=== PATIENT | female | born 1940 | race Caucasian/White ===

== ENCOUNTER 2017-09-13 05:46 | Emergency (ER) | payer MEDICARE ==
[~2017-09-13] VITALS: Ht 167.6 cm; Wt 80.1 kg
[2017-09-13 05:52] VITALS: BP 126/60; PULSE 60; TEMP 97.3
[2017-09-13 05:59] VITALS: PULSE 70; RESP 18; O2SAT 99
[2017-09-13] MEDS ORDERED: LUMI0.01 EACH EYE (06:09)
[2017-09-13] MEDS ORDERED: ROSU10 PO (06:09)
[2017-09-13] MEDS ORDERED: COLE625 PO (06:09)
[2017-09-13] MEDS ORDERED: AMLO10 PO (06:09)
[2017-09-13] MEDS ORDERED: CALC12502 PO (06:10)
[2017-09-13] MEDS ORDERED: ASPI-516 CHEW (06:10)
--- NOTE | 2017-09-13 06:13 | PD ---
HPI Chief Complaint: GI Complaint Time Seen by Provider: 05:53 Travel History International Travel<30 days: No Contact w/Intl Traveler<30days: No Traveled to known affect area: No History of Present Illness HPI The patient is a 77-year-old female that complains of a cough, nausea, vomiting since last night. She denies any fever. She did have a fever earlier this month along with a sore throat. The sore throat is resolved. She denies any abdominal pain. She has never had any surgery and still has her gallbladder and appendix. She is from [facility] and is here for the winter , she does not have a local primary care physician. She denies any blood in the vomitus or stool. 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)) Immunizations Current: Yes Tetanus Vaccination: < 5 Years Influenza Vaccination: Yes Past Surgical History Gynecologic Surgery: Yes (lumpectopy) Social History Alcohol Use: Yes (3oz burbon daily) Tobacco Use: No (quit 20 years ago) Substance Use: No Allergies-Medications (Allergen,Severity, Reaction): Coded Allergies: tetracycline (Verified Allergy, Unknown, 09/13/17) Reported Meds & Prescriptions Reported Meds & Active Scripts Active Reported Calcium Carbonate 500 Mg Calcium (1250 Mg) Tab 1,250 Mg PO TID 1,250 mg calcium carbonate (500 mg elemental calcium) Aspirin 81 Mg Chew 81 Mg CHEW DAILY Welchol (Colesevelam HCl) 625 Mg Tab 1,875 Mg PO BID Lumigan Opth Drops (Bimatoprost) 0.01% Soln 1 Drop EACH EYE HS Crestor (Rosuvastatin Calcium) 10 Mg Tab 10 Mg PO DAILY Norvasc (Amlodipine Besylate) 10 Mg Tab 10 Mg PO DAILY Review of Systems Except as stated in HPI: all other systems reviewed are Neg Physical Exam Narrative GENERAL: The patient is alert, oriented 3, mildly dehydrated appearing in minimal apparent distress with her nausea. Her vital signs are normal. SKIN: Focused skin assessment warm/dry. No skin rash is seen. HEAD: Atraumatic. Normocephalic. EYES: Pupils equal and round. No scleral icterus. No injection or drainage. ENT: No nasal bleeding or discharge. Mucous membranes pink and moist. NECK: Trachea midline. No JVD. CARDIOVASCULAR: Regular rate and rhythm. No murmur appreciated. RESPIRATORY: No accessory muscle use. Clear to auscultation. Breath sounds equal bilaterally. GASTROINTESTINAL: Abdomen soft, non-tender, nondistended. Hepatic and splenic margins not palpable. No guarding or rebound is present. MUSCULOSKELETAL: No obvious deformities. No clubbing. No cyanosis. No edema. NEUROLOGICAL: Awake and alert. No obvious cranial nerve deficits. Motor grossly within normal limits. Normal speech. PSYCHIATRIC: Appropriate mood and affect; insight and judgment normal. Data Data Last Documented VS Vital Signs Date Time Temp Pulse Resp B/P (MAP) Pulse Ox O2 Delivery O2 Flow Rate FiO2 09/13/17 06:46 98 09/13/17 05:59 70 18 09/13/17 05:52 97.3 Orders Orders Complete Blood Count With Diff (09/13/17 06:13) Comprehensive Metabolic Panel (09/13/17 06:13) Lipase (09/13/17 06:13) Urinalysis - C+S If Indicated (09/13/17 06:13) Iv Access Insert/Monitor (09/13/17 06:13) Ecg Monitoring (09/13/17 06:13) Oximetry (09/13/17 06:13) Ondansetron Inj (Zofran Inj) (09/13/17 06:15) Sodium Chloride 0.9% Flush (Ns Flush) (09/13/17 06:15) Ondansetron Inj (Zofran Inj) (09/13/17 06:15) Sodium Chlor 0.9% 1000 Ml Inj (Ns 1000 M (09/13/17 06:15) Influenzae A/B Antigen (09/13/17 06:40) Labs Laboratory Tests Test 09/13/17 06:15 09/13/17 06:20 Urine Color YELLOW Urine Turbidity CLEAR Urine pH 7.5 Urine Specific [place] 1.026 Urine Protein NEG mg/dL Urine Glucose (UA) NEG mg/dL Urine Ketones TRACE mg/dL Urine Occult Blood NEG Urine Nitrite NEG Urine Bilirubin NEG Urine Leukocyte Esterase NEG Urine RBC 0-2 /hpf Urine WBC 0-2 /hpf Urine Squamous Epithelial Cells 0-5 /hpf Urine Bacteria RARE /hpf Microscopic Urinalysis Comment CULT NOT INDICATED White Blood Count 3.7 TH/MM3 Red Blood Count 4.24 MIL/MM3 Hemoglobin 12.7 GM/DL Hematocrit 38.0 % Mean Corpuscular Volume 89.6 FL Mean Corpuscular Hemoglobin 29.8 PG Mean Corpuscular Hemoglobin Concent 33.3 % Red Cell Distribution Width 13.8 % Platelet Count 191 TH/MM3 Mean Platelet Volume 8.6 FL Neutrophils (%) (Auto) 76.6 % Lymphocytes (%) (Auto) 16.1 % Monocytes (%) (Auto) 6.5 % Eosinophils (%) (Auto) 0.0 % Basophils (%) (Auto) 0.8 % Neutrophils # (Auto) 2.9 TH/MM3 Lymphocytes # (Auto) 0.6 TH/MM3 Monocytes # (Auto) 0.2 TH/MM3 Eosinophils # (Auto) 0.0 TH/MM3 Basophils # (Auto) 0.0 TH/MM3 CBC Comment DIFF FINAL Differential Comment Blood Urea Nitrogen 15 MG/DL Creatinine 0.85 MG/DL Random Glucose 149 MG/DL Total Protein 7.1 GM/DL Albumin 3.2 GM/DL Calcium Level 9.1 MG/DL Alkaline Phosphatase 82 U/L Aspartate Amino Transf (AST/SGOT) 24 U/L Alanine Aminotransferase (ALT/SGPT) 38 U/L Total Bilirubin 0.4 MG/DL Sodium Level 138 MEQ/L Potassium Level 3.9 MEQ/L Chloride Level 104 MEQ/L Carbon Dioxide Level 27.5 MEQ/L Anion Gap 7 MEQ/L Estimat Glomerular Filtration Rate 65 ML/MIN Lipase 153 U/L MDM Medical Decision Making Medical Screen Exam Complete: Yes Emergency Medical Condition: Yes Medical Record Reviewed: Yes Interpretation(s) The urine shows clear, dark yellow with specific gravity 1.026, trace ketones and rare bacteria and culture is not indicated. The CBC shows a white count of only 3700 with 77% neutrophils but is otherwise normal. The complete metabolic profile shows a GFR of 165, glucose 149 and albumen 3.2 but is otherwise normal. The lipase is normal. Differential Diagnosis Gastritis, gastroenteritis, bacterial enteritis, cholecystitis, colitis, dehydration, electrolyte disorder, urinary tract infection, flu syndrome, nonspecific viral syndrome Narrative Course The low white count suggestive viral syndrome. The urine shows a high specific gravity, positive ketones and is dark in color which all suggests dehydration. The patient had persistent nausea with 4 of Zofran IV and a second 4 mg of Zofran was given IV. After a total of 8 mg of Zofran the patient does feel better and has no nausea at this time. It is now 0700. Plan: The patient will be given 8 mg Zofran to take every 6-8 hours for nausea. She needs to stick with clear liquids next 24 hours. She should follow-up with her primary care physician as soon as possible. Diagnosis Primary Impression: Gastritis Additional Impressions: Viral syndrome Mild dehydration Additional Instructions: As we discussed, in the next 24 hours he should stick with clear liquids like Gatorade. Make sure you stay well-hydrated, this will make you feel much better. The Zofran can be taken every 6-8 hours if necessary. Med/Other Pt SpecificInfo: Prescription(s) given Scripts Ondansetron (Zofran) 8 Mg Tab 8 MG PO TID for Nausea/Vomiting, #30 TAB 0 Refills Prov: Crow Quintanilla MD 09/13/17 Disposition: 01 DISCHARGE HOME Condition: Stable Crow Quintanilla MD Sep 13, 2017 06:13
[2017-09-13] MEDS ORDERED: ONDANSETRON HCL 4 MG/2 ML VIAL IV ONE (06:15)
[2017-09-13] MEDS ORDERED: ONDANSETRON HCL 4 MG/2 ML VIAL IVP ONE (06:15)
[2017-09-13] MEDS ORDERED: SODIUM CHLORIDE 0.9% FLUSH 10 ML FLUSH IV FLUSH PRN (06:15)
[2017-09-13 06:22] LABS: BILIRUBIN, URINE NEG (NEG); BLOOD, URINE NEG (NEG); GLUCOSE,URINE NEG (NEG); KETONE, URINE TRACE mg/dL (NEG); NITRITE,URINE NEG (NEG); PH, URINE 7.5 (5.0-8.5); URINE LEUKOCYTE ESTERASE NEG (NEG)
[2017-09-13] MEDS: SODIUM CHLOR 0.9% 1000 ML INJ 1,000 ML IV SCH ×2 (06:24→06:44)
[2017-09-13 06:25] LABS: AUTOMATED NEUTROPHIL # 2.9 TH/MM3 (1.8-7.7); BASOPHIL % 0.8 % (0.0-2.0); HEMOGLOBIN 12.7 GM/DL (11.6-15.3); LYMPH % 16.1 % (9.0-44.0); LYMPHOCYTE # 0.6 TH/MM3 (1.0-4.8); MEAN CELL VOLUME 89.6 FL (80.0-100.0); MEAN CORPUSCULAR HEMOGLOBIN 29.8 PG (27.0-34.0); MEAN CORPUSCULAR HGB CONC 33.3 % (32.0-36.0); MEAN PLATELET VOLUME 8.6 FL (7.0-11.0); MONO % 6.5 % (0.0-8.0); MONOCYTE # 0.2 TH/MM3 (0-0.9); NEUT % 76.6 % (16.0-70.0); PLATELET COUNT 191 TH/MM3 (150-450); RED BLOOD COUNT 4.24 MIL/MM3 (4.00-5.30); RED CELL DISTRIBUTION WIDTH 13.8 % (11.6-17.2); WHITE BLOOD COUNT 3.7 TH/MM3 (4.0-11.0)
[2017-09-13 06:27] LABS: URINE COLOR YELLOW (YELLW/STRAW)
[2017-09-13 06:28] LABS: BACTERIA, URINE RARE /hpf; RBC, URINE 0-2 /hpf (0-3); SQUAMOUS EPITHELIAL CELL URINE 0-5 /hpf (0-5); WBC, URINE 0-2 /hpf (0-5)
[2017-09-13 06:40] LABS: CHLORIDE 104 MEQ/L (98-107); SODIUM (NA) 138 MEQ/L (136-145)
[2017-09-13 06:43] LABS: ALBUMIN 3.2 GM/DL (3.4-5.0); BICARBONATE 27.5 MEQ/L (21.0-32.0); CALCIUM 9.1 MG/DL (8.5-10.1); GLUCOSE,RANDOM 149 MG/DL (74-106); LIPASE 153 U/L (73-393)
[2017-09-13 06:44] LABS: BLOOD UREA NITROGEN 15 MG/DL (7-18)
[2017-09-13 06:46] VITALS: O2SAT 98
[2017-09-13 06:46] LABS: ALT (GPT) 38 U/L (10-53); AST (GOT) 24 U/L (15-37); CREATININE 0.85 MG/DL (0.50-1.00); GLOMERULAR FILTRATION RATE 65 ML/MIN (>89)
[2017-09-13 06:48] LABS: TOTAL BILIRUBIN ADULT 0.4 MG/DL (0.2-1.0); TOTAL PROTEIN 7.1 GM/DL (6.4-8.2)
[2017-09-13 06:49] LABS: ALKALINE PHOSPHATASE 82 U/L (45-117)
[2017-09-13] MEDS ORDERED: ZOFR8TAB PO (06:57)
[2017-09-13 07:41] VITALS: BP 130/65
== END 2017-09-13 07:48 | disposition home or self-care (01) ==
LOC: PHED 05:46
DX: A08.4 Viral intestinal infection, unspecified (principal); E86.0 Dehydration; J02.9 Acute pharyngitis, unspecified; I10 Essential (primary) hypertension; Z85.3 Personal history of malignant neoplasm of breast; Z79.82 Long term (current) use of aspirin; Z79.899 Other long term (current) drug therapy; Z88.8 Allergy status to other drugs, medicaments and biological substances
CPT/HCPCS: 80053; 81001; 83690; 85025; 87804; 96361; 96374; 96375; 99284; J2405; J7030

== ENCOUNTER → 2018-01-06 | Outpatient (CLI) | payer MEDICARE ==
[~2018-01-06] MED LIST: AMLO10 PO; ASPI-516 CHEW; CALC12502 PO; COLE625 PO; LUMI0.01 EACH EYE; ROSU10 PO; ZOFR8TAB PO
[2018-01-06 10:23] LABS: HEMATOCRIT 41.2 % (35.0-46.0); HEMOGLOBIN 13.9 GM/DL (11.6-15.3); MEAN CELL VOLUME 92.7 FL (80.0-100.0); MEAN CORPUSCULAR HEMOGLOBIN 31.2 PG (27.0-34.0); MEAN CORPUSCULAR HGB CONC 33.7 % (32.0-36.0); MEAN PLATELET VOLUME 8.8 FL (7.0-11.0); PLATELET COUNT 182 TH/MM3 (150-450); RED BLOOD COUNT 4.44 MIL/MM3 (4.00-5.30); RED CELL DISTRIBUTION WIDTH 13.8 % (11.6-17.2); WHITE BLOOD COUNT 5.6 TH/MM3 (4.0-11.0)
[2018-01-06 10:23] LABS: BACTERIA, URINE RARE /hpf; BILIRUBIN, URINE NEG (NEG); BLOOD, URINE NEG (NEG); GLUCOSE,URINE NEG (NEG); KETONE, URINE NEG (NEG); NITRITE,URINE NEG (NEG); PH, URINE 7.5 (5.0-8.5); SQUAMOUS EPITHELIAL CELL URINE 3 /hpf (0-5); URINE COLOR YELLOW (YELLW/STRAW); URINE LEUKOCYTE ESTERASE NEG (NEG)
[2018-01-06 10:26] LABS: ALBUMIN 3.6 GM/DL (3.4-5.0); AST (GOT) 22 U/L (15-37); BICARBONATE 30.1 MEQ/L (21.0-32.0); BLOOD UREA NITROGEN 12 MG/DL (7-18); CALCIUM 9.4 MG/DL (8.5-10.1); CHLORIDE 106 MEQ/L (98-107); CHOLESTEROL 251 MG/DL (120-200); SODIUM (NA) 142 MEQ/L (136-145)
[2018-01-06 10:27] LABS: CREATININE 0.95 MG/DL (0.50-1.00); GLOMERULAR FILTRATION RATE 57 ML/MIN (>89); GLUCOSE,FASTING 96 MG/DL (74-99)
[2018-01-06 10:29] LABS: ALKALINE PHOSPHATASE 75 U/L (45-117); ALT (GPT) 33 U/L (10-53); CHOLESTEROL/ HDL RATIO 3.22 RATIO; HDL CHOLESTEROL 77.8 MG/DL (40.0-60.0); LDL CHOLESTEROL 147 MG/DL (0-99); LDL CHOLESTEROL DIRECT 162 MG/DL (0-99); TOTAL BILIRUBIN ADULT 0.5 MG/DL (0.2-1.0); TOTAL PROTEIN 7.4 GM/DL (6.4-8.2); TRIGLYCERIDES 132 MG/DL (42-150)
== END ==
LOC: PLAB 07:53
PROVIDERS: ATTEND Internal Medicine
DX: I10 Essential (primary) hypertension (principal)
CPT/HCPCS: 36415; 80053; 80061; 81001; 83721; 85027